=== PATIENT | female | born 1935 | race Caucasian/White ===

== ENCOUNTER → 2016-08-28 | Outpatient (CLI) | payer OTHER, SELFPAY ==
--- NOTE | ~2016-08-28 | TH ---
Unit #: [id number] #: [id number] Patient: BRITTANEY TRACY [id number] [address] [address] [id number] MR#: [id number] NAME: BRITTANEY TRACY : 1935 SEX: F STUDY DATE/TIME: 08/29/2016 UNIT: [facility] ROOM: STUDY DESCRIPTION: Imaging and ECG Attending Physician: Jeronimo Leo M.D. Referring Physician: Jeronimo Leo M.D. Primary Care Physician: Indira Villagran M.D. CARDIOLOGY REPORT EXAM Stress nuclear and ECG INDICATION Preoperative evaluation for shoulder surgery with a history of hypertension, dyslipidemia, diabetes, and tobacco abuse, unable to perform enough exercise for stress. SUMMARY The patient was given Lexiscan intravenously while at rest, as well as technetium-99m Cardiolite 9.09 and 32.5 mCi at rest and stress respectively. Appropriate views were obtained. FINDINGS The rest and stress ECG both showed left bundle-branch block pattern. Resting blood pressure 170/78, heart rate 67. With stress there were no diagnostic ST shifts, no significant dysrhythmias and no heart block. Peak heart rate was 81 beats per minute, peak blood pressure 148/86. Perfusion images demonstrate diaphragmatic artifact at rest, but not with stress. Otherwise perfusion is normal and equivalent between rest and stress. Planar images showed no significant patient motion either at rest or stress. There is no significant lung uptake, LV or RV enlargement. Summed stress score is 2, summed difference score is 2. Gated perfusion wall motion analysis demonstrates upper normal LV size 90 mL, ejection fraction 59% with no wall motion abnormalities. IMPRESSION 1. Myocardial perfusion scan shows no ischemia or infarction. 2. Based on these findings, patient would be considered at low risk for cardiac complication for noncardiac surgery. 3. Normal wall motion with normal ejection fraction. Dictated by... Germain Jackson M.D. Unit #: [id number] #: [id number] Patient: BRITTANEY TRACY CHRISTIAN/gustavo TD: 08/31/2016 18:30 JOB #: [id number] CARDIOLOGY REPORT X Germain Jackson MD CARDIOLOGY REPORT
== END | disposition home or self-care (01) ==
LOC: CNUC 09:06
DX: Z01.818 Encounter for other preprocedural examination (principal); R07.89 Other chest pain; I10 Essential (primary) hypertension; I51.7 Cardiomegaly
CPT/HCPCS: 78452; 82947; 93017; 93306; A9500; J2785